=== PATIENT | male | born 1955 | race Caucasian/White ===

== ENCOUNTER → 2017-08-20 | Outpatient (CLI) | payer BC | END | disposition home or self-care (01) | LOC: CDC 10:30 | DX: Z01.810 Encounter for preprocedural cardiovascular examination (principal); M25.512 Pain in left shoulder; M75.102 Unspecified rotator cuff tear or rupture of left shoulder, not specified as traumatic; M75.42 Impingement syndrome of left shoulder | CPT/HCPCS: 93000 ==